=== PATIENT | male | born 1975 | race Caucasian/White ===

== ENCOUNTER 2019-05-29 08:46 | Inpatient (IN) | payer MEDICAID ==
[2019-05-29] VITALS (10 sets, daily range): BP systolic 83–101; BP diastolic 44–66
[~2019-05-29] VITALS: Ht 167.6 cm; Wt 44.6 kg
[~2019-05-29 08:46] MED LIST: CHLO5CAP3 PO; OXCA150T5 PO
[2019-05-29] MEDS ORDERED: normal saline 1000ml 1,000 ML IV ONE (09:10)
[2019-05-29 09:58] LABS: BASOPHILS # (AUTO) 0.1 X10'3 (0-0.2); BASOPHILS % (AUTO) 0.8 % (0-1); EOSINOPHILS % (AUTO) 0.2 % (0-6); HEMATOCRIT 43.3 % (42.0-52.0); HEMOGLOBIN 15.9 g/dl (14.0-17.9); LYMPHOCYTES # (AUTO) 1.1 X10'3 (1.1-4.8); LYMPHOCYTES % (AUTO) 11.4 % (21-51); MEAN CORPUSCULAR HEMOGLOBIN 38.3 PG (27.0-31.0); MEAN CORPUSCULAR HGB CONC 36.7 g/dL (33.0-36.5); MEAN CORPUSCULAR VOLUME 104.3 FL (78-98); MEAN PLATELET VOLUME 9.2 FL (7.4-10.4); MONOCYTES # (AUTO) 1.2 X10'3 (0-0.9); MONOCYTES % (AUTO) 12.6 % (2-12); NEUTROPHILS # (AUTO) 7.2 X10'3 (1.8-7.7); PLATELET COUNT 255 X10'3 (140-440); RED BLOOD COUNT 4.15 X10'6 (4.70-6.10); RED CELL DISTRIBUTION WIDTH 16.6 % (11.5-14.5); WHITE BLOOD COUNT 9.6 X10'3 (4.5-11.0)
[2019-05-29] MEDS ORDERED: aspirin 325mg tablet PO ONE (10:05)
[2019-05-29 10:10] LABS: ALANINE AMINOTRANSFERASE 47 U/L (12-78); ALBUMIN 3.2 G/DL (3.4-5.0); ALBUMIN/GLOBULIN RATIO 0.8 (1.1-1.5); ALKALINE PHOSPHATASE 185 IU/L (46-116); ANION GAP 6 (8-16); ASPARTATE AMINO TRANSFERASE 72 U/L (10-37); BILIRUBIN,TOTAL 1.1 MG/DL (0.1-1.0); BLOOD UREA NITROGEN 6 MG/DL (7-18); BUN/CREATININE RATIO 6.1 (5.4-32.0); CALCIUM 8.1 MG/DL (8.5-10.1); CHLORIDE 65 MMOL/L (99-107); CREATININE 0.99 MG/DL (0.60-1.10); ETHANOL < 0.010 GM/DL (0.0-0.010); GLUCOSE 210 MG/DL (70-104); MAGNESIUM 1.4 MG/DL (1.5-2.4); PHOSPHORUS 4.2 MG/DL (2.3-4.5); TOTAL PROTEIN 7.4 G/DL (6.4-8.2); eGFR 82 ML/MIN
[2019-05-29 10:14] LABS: POTASSIUM 1.5 MMOL/L (3.5-5.1); SODIUM 115 MMOL/L (135-145)
[2019-05-29 10:15] LABS: TOTAL CARBON DIOXIDE 44.2 MMOL/L (24-32)
[2019-05-29] MEDS ORDERED: potassium Cl 20 mEq SR tablet PO ONE (10:20)
[2019-05-29] MEDS ORDERED: potassium Cl 10 mEq/100mL bag IV ONE ×2 (10:20→12:45)
[2019-05-29] MEDS ORDERED: magnesium 2GM in 50ml NS 50 ML IV ONE (10:20)
[2019-05-29 10:59] LABS: TOTAL CELLS COUNTED 100
[2019-05-29 11:01] LABS: ANISOCYTOSIS 1+; PLATELET ESTIMATE NORMAL
[2019-05-29 11:03] LABS: GIANT PLATELET FEW
[2019-05-29 11:05] LABS: LARGE PLATELETS MODERATE; POLYCHROMASIA FEW
[2019-05-29 11:06] LABS: ROULEAUX 1+
[2019-05-29 11:32] LABS: CLARITY,URINE CLEAR (Clear); COLOR,URINE YELLOW (Yellow); GLUCOSE, URINE NEGATIVE (Neg); KETONES,URINE NEGATIVE (Neg); LEUKOCYTE ESTERASE ,URINE NEGATIVE (Neg); NITRITES, URINE NEGATIVE (Neg); OCCULT BLOOD,URINE TRACE-LYSED (Neg); PH,URINE 6.5 (4.8-8.0); PROTEIN,URINE 30 mg/dl (Neg); UROBILINOGEN,URINE 0.2 E.U/dL (0.2-1.0)
[2019-05-29 11:35] LABS: UA COLLECTION TYPE CLN CATCH MIDSTREAM
[2019-05-29 11:36] LABS: URINE AMPHETAMINE SCREEN NEGATIVE (Neg); URINE BARBITUATE SCREEN NEGATIVE (Neg); URINE BENZODIAZEPINES SCREEN NEGATIVE (Neg); URINE CANNABINOID SCREEN POSITIVE (Neg); URINE COCAINE SCREEN NEGATIVE (Neg); URINE METHADONE SCREEN NEGATIVE (Neg); URINE OPIATE SCREEN NEGATIVE (Neg); URINE PHENCYCLIDINE SCREEN NEGATIVE (Neg)
[2019-05-29 11:36] LABS: ABG BASE EXCESS 21.3 mmol/L (-2.0-3.0); ABG HCO3 45.5 mmol/L (22.0-26.0); ABG OXYGEN SATURATION 93.7 % (95-98); ABG PH (T) 7.604 (7.350-7.450); ABG PO2 (T) 63.8 mmHg (83-108); FCOHb 2.1 % (0.5-1.5); FMetHb 0.1 % (0.3-1.12); FO2Hb 91.6 % (94-100); TOTAL HEMOGLOBIN 13.2 G/dl (14.0-17.9)
[2019-05-29 11:43] LABS: RBC,URINE 0-2 /HPF (0-2)
[2019-05-29 11:44] LABS: BACTERIA,URINE NONE SEEN /HPF (Neg); SQUAMOUS EPITHELIAL CELL,UR FEW /LPF (FEW)
[2019-05-29] MEDS ORDERED: sodium phosphate inj. 30 MMOL in dextrose 5%-water 250 ML IV PRN (11:45)
[2019-05-29] MEDS ORDERED: bisacodyl 10mg suppository rectal RC PRN (11:45)
[2019-05-29] MEDS ORDERED: magnesium hydroxide 30ml (MOM) UD suspension PO PRN (11:45)
[2019-05-29] MEDS ORDERED: magnesium Cl slow-release 64mg tablet PO PRN (11:45)
[2019-05-29] MEDS ORDERED: acetaminophen 325mg tablet PO PRN ×2 (11:45)
[2019-05-29] MEDS ORDERED: magnesium 2GM in 50ml NS 50 ML IV PRN (11:45)
[2019-05-29] MEDS ORDERED: Neutra Phos packet PO PRN (11:45)
[2019-05-29] MEDS ORDERED: ondansetron/PF 4mg/2ml inj IV PRN (11:45)
[2019-05-29] MEDS: normal saline 1000ml 1,000 ML IV SCH ×2 (12:16→22:52)
[2019-05-29] MEDS ORDERED: MULT-955 PO (12:21)
[2019-05-29] MEDS: magnesium 4gm in 100ml NS 100 ML IV PRN (12:23)
[2019-05-29] MEDS: K, MAG and/or Phos replacement - Verify level? MC SCH (12:30)
--- NOTE | 2019-05-29 12:31 | NUR ---
called regarding repeat k+ 1.7 md ordered to repeat previous K+ orders. 10 meq IV and 40 meq PO.
[2019-05-29 12:52] LABS: ALBUMIN 2.6 G/DL (3.4-5.0); ANION GAP 1 (8-16); BLOOD UREA NITROGEN 5 MG/DL (7-18); BUN/CREATININE RATIO 9.4 (5.4-32.0); CALCIUM 6.8 MG/DL (8.5-10.1); CHLORIDE 72 MMOL/L (99-107); CREATININE 0.53 MG/DL (0.60-1.10); GLUCOSE 101 MG/DL (70-104); PHOSPHORUS 3.2 MG/DL (2.3-4.5); eGFR > 90 ML/MIN
[2019-05-29 12:55] LABS: SODIUM 117 MMOL/L (135-145)
[2019-05-29] MEDS: potassium Cl 20 mEq SR tablet PO PRN ×3 (12:55→22:08)
[2019-05-29 12:56] LABS: POTASSIUM 1.8 MMOL/L (3.5-5.1); TOTAL CARBON DIOXIDE 44.3 MMOL/L (24-32)
[2019-05-29] MEDS ORDERED: chlordiazePOXIDE 5mg capsule PO SCH (13:00)
[2019-05-29 14:07] LABS: TROPONIN I 0.27 NG/ML (0.0-0.05)
[2019-05-29 15:55] LABS: MAGNESIUM 4.2 MG/DL (1.5-2.4)
[2019-05-29 16:08] LABS: ALBUMIN 2.4 G/DL (3.4-5.0); ANION GAP 0 (8-16); BLOOD UREA NITROGEN 4 MG/DL (7-18); BUN/CREATININE RATIO 7.5 (5.4-32.0); CALCIUM 6.9 MG/DL (8.5-10.1); CHLORIDE 72 MMOL/L (99-107); CREATININE 0.53 MG/DL (0.60-1.10); GLUCOSE 116 MG/DL (70-104); PHOSPHORUS 2.9 MG/DL (2.3-4.5); eGFR > 90 ML/MIN
[2019-05-29 16:13] LABS: POTASSIUM 1.9 MMOL/L (3.5-5.1); SODIUM 117 MMOL/L (135-145)
[2019-05-29 16:14] LABS: TOTAL CARBON DIOXIDE 44.9 MMOL/L (24-32)
[2019-05-29 18:29] LABS: ALBUMIN 2.6 G/DL (3.4-5.0); ANION GAP 0 (8-16); BLOOD UREA NITROGEN 4 MG/DL (7-18); BUN/CREATININE RATIO 8.9 (5.4-32.0); CALCIUM 6.9 MG/DL (8.5-10.1); CHLORIDE 77 MMOL/L (99-107); CREATININE 0.45 MG/DL (0.60-1.10); GLUCOSE 105 MG/DL (70-104); PHOSPHORUS 2.6 MG/DL (2.3-4.5); eGFR > 90 ML/MIN
--- NOTE | 2019-05-29 18:34 | NUR ---
Patient in room CICU 2011. I have received report from Chastity BANSAL and had the opportunity to ask questions and assume patient care. Patient is resting, doesn't have much of an appetite, will continue to monitor.
[2019-05-29 18:37] LABS: SODIUM 119 MMOL/L (135-145)
[2019-05-29 18:47] LABS: MAGNESIUM 3.4 MG/DL (1.5-2.4)
--- NOTE | 2019-05-29 18:51 | NUR ---
Received critical lab results K+ 2.0 (up from 1.9) Na 119 (up from 117) pCo2 42 (down from 44.9)
[2019-05-29] MEDS ORDERED: oxcarbazepine 150mg tablet PO SCH (20:00)
[2019-05-29] MEDS: heparin, porcine 5000 units/ml vial SQ SCH (20:02)
[2019-05-29 20:13] LABS: OSMOLALITY UA 175 MOSM/K (50-1400)
[2019-05-29 20:18] LABS: CHLORIDE,URINE RANDOM < 50 MEQ/L
[2019-05-29 21:48] LABS: ALBUMIN 2.5 G/DL (3.4-5.0); ANION GAP -1 (8-16); BLOOD UREA NITROGEN 4 MG/DL (7-18); BUN/CREATININE RATIO 7.7 (5.4-32.0); CALCIUM 6.8 MG/DL (8.5-10.1); CHLORIDE 81 MMOL/L (99-107); CREATININE 0.52 MG/DL (0.60-1.10); GLUCOSE 89 MG/DL (70-104); PHOSPHORUS 1.8 MG/DL (2.3-4.5); SODIUM 123 MMOL/L (135-145); eGFR > 90 ML/MIN
[2019-05-29 21:52] LABS: POTASSIUM 2.2 MMOL/L (3.5-5.1); TOTAL CARBON DIOXIDE 42.6 MMOL/L (24-32)
--- NOTE | 2019-05-29 22:17 | NUR ---
Lab called with critical results K+ 2.2 (up from 2.0) Co2 42.6 Na+ 123 (no longer critical)
[2019-05-30] VITALS (22 sets, daily range): BP systolic 81–119; BP diastolic 37–81
[2019-05-30 00:32] LABS: ALBUMIN 2.4 G/DL (3.4-5.0); ANION GAP 0 (8-16); BLOOD UREA NITROGEN 4 MG/DL (7-18); BUN/CREATININE RATIO 9.5 (5.4-32.0); CALCIUM 7.1 MG/DL (8.5-10.1); CHLORIDE 83 MMOL/L (99-107); CREATININE 0.42 MG/DL (0.60-1.10); GLUCOSE 107 MG/DL (70-104); PHOSPHORUS 1.6 MG/DL (2.3-4.5); SODIUM 123 MMOL/L (135-145); TOTAL CARBON DIOXIDE 39.9 MMOL/L (24-32); eGFR > 90 ML/MIN
[2019-05-30 00:38] LABS: POTASSIUM 2.2 MMOL/L (3.5-5.1)
[2019-05-30] MEDS: potassium Cl 20 mEq SR tablet PO PRN ×3 (02:01→22:27)
[2019-05-30 05:30] LABS: BASOPHILS % (AUTO) 0.4 % (0-1); EOSINOPHILS % (AUTO) 0.2 % (0-6); LYMPHOCYTES # (AUTO) 1.3 X10'3 (1.1-4.8); LYMPHOCYTES % (AUTO) 17.8 % (21-51); MEAN PLATELET VOLUME 9.3 FL (7.4-10.4); MONOCYTES # (AUTO) 0.8 X10'3 (0-0.9); MONOCYTES % (AUTO) 11.4 % (2-12); NEUTROPHILS % (AUTO) 70.2 % (42-75); PLATELET COUNT 214 X10'3 (140-440); RED BLOOD COUNT 2.93 X10'6 (4.70-6.10); WHITE BLOOD COUNT 7.1 X10'3 (4.5-11.0)
[2019-05-30 06:05] LABS: ALANINE AMINOTRANSFERASE 35 U/L (12-78); ALBUMIN 2.4 G/DL (3.4-5.0); ALBUMIN/GLOBULIN RATIO 0.8 (1.1-1.5); ALKALINE PHOSPHATASE 131 IU/L (46-116); ANION GAP 2 (8-16); ASPARTATE AMINO TRANSFERASE 58 U/L (10-37); BILIRUBIN,TOTAL 0.6 MG/DL (0.1-1.0); BLOOD UREA NITROGEN 4 MG/DL (7-18); BUN/CREATININE RATIO 9.5 (5.4-32.0); CALCIUM 6.8 MG/DL (8.5-10.1); CHLORIDE 86 MMOL/L (99-107); CREATININE 0.42 MG/DL (0.60-1.10); GLUCOSE 92 MG/DL (70-104); MAGNESIUM 2.5 MG/DL (1.5-2.4); PHOSPHORUS 1.4 MG/DL (2.3-4.5); SODIUM 127 MMOL/L (135-145); TOTAL CARBON DIOXIDE 38.8 MMOL/L (24-32); TOTAL PROTEIN 5.3 G/DL (6.4-8.2); eGFR > 90 ML/MIN
[2019-05-30 06:29] LABS: POTASSIUM 2.5 MMOL/L (3.5-5.1)
--- NOTE | 2019-05-30 06:45 | NUR ---
Problems reprioritized. Patient report given, questions answered & plan of care reviewed with Leandra BANSAL.
[2019-05-30 07:11] LABS: HEMOGLOBIN 11.3 g/dl (14.0-17.9); MEAN CORPUSCULAR HEMOGLOBIN 37.5 PG (27.0-31.0); MEAN CORPUSCULAR HGB CONC 35.4 g/dL (33.0-36.5); MEAN CORPUSCULAR VOLUME 105.9 FL (78-98); RED CELL DISTRIBUTION WIDTH 16.4 % (11.5-14.5)
[2019-05-30 07:16] LABS: ANISOCYTOSIS 1+; PLATELET ESTIMATE NORMAL
[2019-05-30] MEDS: normal saline 1000ml 1,000 ML IV SCH ×2 (09:19→17:50)
[2019-05-30] MEDS: heparin, porcine 5000 units/ml vial SQ SCH ×2 (09:19→21:09)
[2019-05-30 09:57] LABS: ALBUMIN 2.5 G/DL (3.4-5.0); ANION GAP 3 (8-16); BLOOD UREA NITROGEN 3 MG/DL (7-18); BUN/CREATININE RATIO 5.5 (5.4-32.0); CALCIUM 6.9 MG/DL (8.5-10.1); CHLORIDE 86 MMOL/L (99-107); CREATININE 0.55 MG/DL (0.60-1.10); GLUCOSE 148 MG/DL (70-104); SODIUM 126 MMOL/L (135-145); TOTAL CARBON DIOXIDE 37.3 MMOL/L (24-32); eGFR > 90 ML/MIN
[2019-05-30 10:04] LABS: PHOSPHORUS 0.8 MG/DL (2.3-4.5); POTASSIUM 2.3 MMOL/L (3.5-5.1)
[2019-05-30] MEDS: K, MAG and/or Phos replacement - Verify level? MC SCH (10:09)
--- NOTE | 2019-05-30 10:22 | NUR ---
Dr. Rodriguez currently doing critical care rounds. Will notify MD on rounds about K2.3 and Phos 0.8. Addendum: 05/30/19 at 1048 by Leandra Krueger RN Dr. Rodriguez aware of levels. Order received to give IV Potassium replacement and Potassium Phos replacement per Dr. Rodriguez. MD state he placed an order yesterday for PICC placement, none placed. stated PICC placed first before further electrolyte replacement. PICC RN paged. Also, obtained order to d/c accu checks q6 as pt is not a diabetic. BG consistently normal in the 100's.
[2019-05-30] MEDS ORDERED: potassium phosphate inj 30 MMOL in normal saline 500ml IV soln 490 ML IV ONE (10:35)
--- NOTE | 2019-05-30 12:39 | NUR ---
pt requesting a nicotine patch. Dr. Rodriguez aware and stated ok to give. Order for nicotine patch placed.
[2019-05-30] MEDS: nicotine 14mg patch - 24hr TD SCH (13:10)
[2019-05-30 13:37] LABS: ALBUMIN 2.3 G/DL (3.4-5.0); ANION GAP 1 (8-16); BLOOD UREA NITROGEN 3 MG/DL (7-18); CALCIUM 7.6 MG/DL (8.5-10.1); CHLORIDE 90 MMOL/L (99-107); CREATININE 0.43 MG/DL (0.60-1.10); GLUCOSE 94 MG/DL (70-104); SODIUM 129 MMOL/L (135-145); TOTAL CARBON DIOXIDE 37.7 MMOL/L (24-32); eGFR > 90 ML/MIN
[2019-05-30 13:49] LABS: PHOSPHORUS 0.8 MG/DL (2.3-4.5); POTASSIUM 2.7 MMOL/L (3.5-5.1)
--- NOTE | 2019-05-30 13:53 | NUR ---
Malnutrition consult, admitted with electrolyte abnormalities; reports weight loss of 16 lbs in the past month per MD note. History of EtOH but reports currently clean. Current weight is 40.6 kg on bedscale. Very low BMI of 14. Per weight documentation history patient is chronically underweight, weighted 45 kg in 2017 with BMI of 16. Current MCV is 105.9 which may indicate or folic acid or vitamin B12 deficiency. Sodium, potassium, and phosphorus are low, MD is aware and patient is receiving replacement. Appetite is poor, eating 0-25%. Visibly with fat and muscle wasting. May benefit from oral nutrition supplement however on fluid restricted diet. Will discuss recommendation with MD. Recommend: 1. continue regular diet 2. continue fluid restriction per MD 3. recommend ONS in view of malnutrition and suboptimal PO Intake, will discuss with MD 4. May benefit from MVI 5. Weight per rx Addendum: 05/30/19 at [address] Amended: Links added.
[2019-05-30 15:53] LABS: ALBUMIN 2.3 G/DL (3.4-5.0); ANION GAP 2 (8-16); BLOOD UREA NITROGEN 3 MG/DL (7-18); BUN/CREATININE RATIO 6.3 (5.4-32.0); CALCIUM 7.2 MG/DL (8.5-10.1); CHLORIDE 89 MMOL/L (99-107); CREATININE 0.48 MG/DL (0.60-1.10); GLUCOSE 125 MG/DL (70-104); SODIUM 127 MMOL/L (135-145); eGFR > 90 ML/MIN
[2019-05-30] MEDS: potassium Cl 20mEq/100mL bag 100 ML IV PRN ×2 (15:56→17:32)
[2019-05-30 16:01] LABS: PHOSPHORUS 0.7 MG/DL (2.3-4.5); POTASSIUM 2.2 MMOL/L (3.5-5.1)
[2019-05-30] MEDS: lactose-reduced food (Ensure Enlive) - 237ml bottle PO SCH (18:00)
--- NOTE | 2019-05-30 18:14 | NUR ---
Problems reprioritized. Patient report given, questions answered & plan of care reviewed with NIMISHA Spivey.
--- NOTE | 2019-05-30 18:30 | NUR ---
assumed care from Leandra BANSAL no questions or concerns after SBAR
--- NOTE | 2019-05-30 19:33 | NUR ---
patient in bed, covers on eyes open watching television, rr even un labored no observable s/s of acute stress at this time
[2019-05-30 21:03] LABS: ALBUMIN 2.3 G/DL (3.4-5.0); ANION GAP 5 (8-16); BLOOD UREA NITROGEN 2 MG/DL (7-18); BUN/CREATININE RATIO 4.8 (5.4-32.0); CALCIUM 7.5 MG/DL (8.5-10.1); CHLORIDE 92 MMOL/L (99-107); CREATININE 0.42 MG/DL (0.60-1.10); GLUCOSE 124 MG/DL (70-104); PHOSPHORUS 2.4 MG/DL (2.3-4.5); POTASSIUM 3.1 MMOL/L (3.5-5.1); SODIUM 128 MMOL/L (135-145); TOTAL CARBON DIOXIDE 31.4 MMOL/L (24-32); eGFR > 90 ML/MIN
[2019-05-31] VITALS (20 sets, daily range): BP systolic 95–122; BP diastolic 53–86
[2019-05-31 01:27] LABS: ALBUMIN 2.3 G/DL (3.4-5.0); ANION GAP 4 (8-16); BLOOD UREA NITROGEN 2 MG/DL (7-18); BUN/CREATININE RATIO 6.5 (5.4-32.0); CALCIUM 7.8 MG/DL (8.5-10.1); CHLORIDE 93 MMOL/L (99-107); CREATININE 0.31 MG/DL (0.60-1.10); GLUCOSE 91 MG/DL (70-104); PHOSPHORUS 2.7 MG/DL (2.3-4.5); SODIUM 129 MMOL/L (135-145); TOTAL CARBON DIOXIDE 31.9 MMOL/L (24-32); eGFR > 90 ML/MIN
[2019-05-31 01:35] LABS: POTASSIUM 2.8 MMOL/L (3.5-5.1)
--- NOTE | 2019-05-31 02:08 | NUR ---
PATIENT LYING ON RIGHT SIDE IN BED COVERS ON EYES CLOSED RR EVEN UN LABORED NO S/S OF ACUTE STRESS AT THIS TIME
[2019-05-31] MEDS: potassium Cl 20 mEq SR tablet PO PRN ×2 (03:18→06:55)
[2019-05-31 04:02] LABS: BASOPHILS # (AUTO) 0.1 X10'3 (0-0.2); BASOPHILS % (AUTO) 0.9 % (0-1); EOSINOPHILS % (AUTO) 0.4 % (0-6); HEMATOCRIT 30.5 % (42.0-52.0); LYMPHOCYTES # (AUTO) 1.7 X10'3 (1.1-4.8); LYMPHOCYTES % (AUTO) 25.2 % (21-51); MEAN CORPUSCULAR HEMOGLOBIN 38.6 PG (27.0-31.0); MEAN CORPUSCULAR HGB CONC 36.2 g/dL (33.0-36.5); MEAN CORPUSCULAR VOLUME 106.6 FL (78-98); MEAN PLATELET VOLUME 8.9 FL (7.4-10.4); MONOCYTES # (AUTO) 0.8 X10'3 (0-0.9); NEUTROPHILS # (AUTO) 4.1 X10'3 (1.8-7.7); NEUTROPHILS % (AUTO) 61.5 % (42-75); PLATELET COUNT 206 X10'3 (140-440); RED BLOOD COUNT 2.86 X10'6 (4.70-6.10); RED CELL DISTRIBUTION WIDTH 15.7 % (11.5-14.5); WHITE BLOOD COUNT 6.7 X10'3 (4.5-11.0)
[2019-05-31 04:13] LABS: ALANINE AMINOTRANSFERASE 38 U/L (12-78); ALBUMIN 2.3 G/DL (3.4-5.0); ALBUMIN/GLOBULIN RATIO 0.8 (1.1-1.5); ALKALINE PHOSPHATASE 122 IU/L (46-116); ANION GAP 6 (8-16); ASPARTATE AMINO TRANSFERASE 51 U/L (10-37); BILIRUBIN,TOTAL 0.6 MG/DL (0.1-1.0); BLOOD UREA NITROGEN 3 MG/DL (7-18); BUN/CREATININE RATIO 11.1 (5.4-32.0); CALCIUM 6.9 MG/DL (8.5-10.1); CHLORIDE 92 MMOL/L (99-107); CREATININE 0.27 MG/DL (0.60-1.10); GLUCOSE 91 MG/DL (70-104); MAGNESIUM 1.4 MG/DL (1.5-2.4); PHOSPHORUS 2.3 MG/DL (2.3-4.5); SODIUM 130 MMOL/L (135-145); TOTAL CARBON DIOXIDE 31.7 MMOL/L (24-32); TOTAL PROTEIN 5.1 G/DL (6.4-8.2); eGFR > 90 ML/MIN
[2019-05-31 04:17] LABS: POTASSIUM 2.6 MMOL/L (3.5-5.1)
[2019-05-31] MEDS: potassium Cl 20mEq/100mL bag 100 ML IV PRN ×2 (04:23→05:21)
[2019-05-31] MEDS: normal saline 1000ml 1,000 ML IV SCH ×3 (04:23→23:50)
[2019-05-31] MEDS: magnesium 4gm in 100ml NS 100 ML IV PRN (05:22)
--- NOTE | 2019-05-31 06:15 | NUR ---
SBAR TO ALETHEA BANSAL NO QUESTIONS OR CONCERNS AFTER ASSUMING CARE
--- NOTE | 2019-05-31 06:30 | NUR ---
Patient in room CICU 2011. I have received report from NIMISHA Spivey and had the opportunity to ask questions and assume patient care.
[2019-05-31] MEDS: potassium CL 10mEq/100ml bag 100 ML IV PRN ×7 (06:54→17:33)
[2019-05-31 07:15] LABS: ALBUMIN 2.4 G/DL (3.4-5.0); ANION GAP 5 (8-16); BLOOD UREA NITROGEN 2 MG/DL (7-18); BUN/CREATININE RATIO 6.3 (5.4-32.0); CALCIUM 7.9 MG/DL (8.5-10.1); CHLORIDE 93 MMOL/L (99-107); CREATININE 0.32 MG/DL (0.60-1.10); GLUCOSE 90 MG/DL (70-104); PHOSPHORUS 1.7 MG/DL (2.3-4.5); POTASSIUM 3.3 MMOL/L (3.5-5.1); SODIUM 128 MMOL/L (135-145); TOTAL CARBON DIOXIDE 30.2 MMOL/L (24-32); eGFR > 90 ML/MIN
[2019-05-31] MEDS: heparin, porcine 5000 units/ml vial SQ SCH ×2 (07:18→21:01)
[2019-05-31] MEDS: nicotine 14mg patch - 24hr TD SCH (07:19)
[2019-05-31] MEDS: K, MAG and/or Phos replacement - Verify level? MC SCH (08:00)
[2019-05-31] MEDS: lactose-reduced food (Ensure Enlive) - 237ml bottle PO SCH ×3 (08:00→18:00)
[2019-05-31] MEDS: sodium phosphate inj. 15 MMOL in dextrose 5%-water 150 ML IV PRN (08:44)
[2019-05-31 10:34] LABS: ALBUMIN 2.4 G/DL (3.4-5.0); ANION GAP 7 (8-16); BLOOD UREA NITROGEN 1 MG/DL (7-18); CALCIUM 6.9 MG/DL (8.5-10.1); CHLORIDE 92 MMOL/L (99-107); CREATININE 0.33 MG/DL (0.60-1.10); GLUCOSE 156 MG/DL (70-104); MAGNESIUM 2.5 MG/DL (1.5-2.4); PHOSPHORUS 1.3 MG/DL (2.3-4.5); POTASSIUM 3.5 MMOL/L (3.5-5.1); SODIUM 127 MMOL/L (135-145); eGFR > 90 ML/MIN
[2019-05-31] MEDS ORDERED: haloperidol 5mg tablet PO PRN (12:55)
[2019-05-31] MEDS ORDERED: LORazepam 1 MG tablet PO PRN (12:55)
[2019-05-31] MEDS ORDERED: thiamine inj. 100 MG, folic acid inj. 2 MG in normal saline 100ml IV soln 100 ML IV SCH (13:02)
[2019-05-31 14:32] LABS: ALBUMIN 2.5 G/DL (3.4-5.0); ANION GAP 8 (8-16); BLOOD UREA NITROGEN 2 MG/DL (7-18); BUN/CREATININE RATIO 4.5 (5.4-32.0); CALCIUM 7.1 MG/DL (8.5-10.1); CHLORIDE 92 MMOL/L (99-107); CREATININE 0.44 MG/DL (0.60-1.10); GLUCOSE 133 MG/DL (70-104); PHOSPHORUS 2.3 MG/DL (2.3-4.5); POTASSIUM 3.4 MMOL/L (3.5-5.1); SODIUM 127 MMOL/L (135-145); TOTAL CARBON DIOXIDE 27.2 MMOL/L (24-32); eGFR > 90 ML/MIN
[2019-05-31] MEDS ORDERED: MVI, adult No.4 with vit. K 10 ML in dextrose 5% water 500ml 500 ML IV SCH ×2 (15:00)
[2019-05-31] MEDS: folic acid 1mg tablet PO SCH (15:29)
[2019-05-31] MEDS: thiamine 100mg tablet PO SCH (15:29)
--- NOTE | 2019-05-31 15:48 | NUR ---
Follow-up: visited patient at bedside, patient reports no chewing or swallowing difficulty, no GI distress, reports UBW of 115 lbs, current weight 96 lbs. States the weight was lost unintentionally but has not changed his diet or lifestyle recently. Endorses past history of heavy EtOH and went through rehab two years ago, was drinking a gallon of EtOH and beer at that time. Reports he currently drink half pint two times per week, d/w RN. 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 He is very interested in drinking the ensure, provided written malnutrition education handout with verbal review. Recommend multivitamin, d/w MD at rounds. Will continue to follow. Recommend: 1. continue regular diet 2. continue fluid restriction per MD 3. Ensure Enlive with meals 4. MVI 5. Weight per rx Addendum: 05/31/19 at [address] Amended: Links added.
[2019-05-31 17:53] LABS: ALBUMIN 2.4 G/DL (3.4-5.0); ANION GAP 7 (8-16); BLOOD UREA NITROGEN 2 MG/DL (7-18); BUN/CREATININE RATIO 6.1 (5.4-32.0); CALCIUM 7.2 MG/DL (8.5-10.1); CHLORIDE 94 MMOL/L (99-107); CREATININE 0.33 MG/DL (0.60-1.10); GLUCOSE 85 MG/DL (70-104); PHOSPHORUS 2.2 MG/DL (2.3-4.5); POTASSIUM 3.9 MMOL/L (3.5-5.1); SODIUM 128 MMOL/L (135-145); TOTAL CARBON DIOXIDE 27.1 MMOL/L (24-32); eGFR > 90 ML/MIN
--- NOTE | 2019-05-31 17:59 | NUR ---
Report called to NIMISHA Arcos. Pt placed on tele and transferred to telemetry floor via wheelchair with all belongings. Pt alert, oriented and stable for transfer. No complaints at this time.
--- NOTE | 2019-05-31 18:33 | NUR ---
Problems reprioritized. Patient report given, questions answered & plan of care reviewed with NIMISHA Rascon.
[2019-05-31 22:33] LABS: ALBUMIN 2.4 G/DL (3.4-5.0); ANION GAP 4 (8-16); BLOOD UREA NITROGEN 2 MG/DL (7-18); BUN/CREATININE RATIO 4.8 (5.4-32.0); CALCIUM 8.2 MG/DL (8.5-10.1); CHLORIDE 97 MMOL/L (99-107); CREATININE 0.42 MG/DL (0.60-1.10); GLUCOSE 105 MG/DL (70-104); PHOSPHORUS 1.8 MG/DL (2.3-4.5); SODIUM 130 MMOL/L (135-145); TOTAL CARBON DIOXIDE 29.1 MMOL/L (24-32); eGFR > 90 ML/MIN
[2019-06-01 02:24] LABS: BASOPHILS # (AUTO) 0.1 X10'3 (0-0.2); BASOPHILS % (AUTO) 1.3 % (0-1); EOSINOPHILS # (AUTO) 0.1 X10'3 (0-0.9); EOSINOPHILS % (AUTO) 1.1 % (0-6); HEMATOCRIT 31.3 % (42.0-52.0); HEMOGLOBIN 10.9 g/dl (14.0-17.9); LYMPHOCYTES % (AUTO) 21.1 % (21-51); MEAN CORPUSCULAR HEMOGLOBIN 37.9 PG (27.0-31.0); MEAN CORPUSCULAR HGB CONC 34.7 g/dL (33.0-36.5); MEAN CORPUSCULAR VOLUME 109.2 FL (78-98); MEAN PLATELET VOLUME 8.8 FL (7.4-10.4); MONOCYTES % (AUTO) 10.3 % (2-12); NEUTROPHILS # (AUTO) 6.4 X10'3 (1.8-7.7); NEUTROPHILS % (AUTO) 66.2 % (42-75); PLATELET COUNT 214 X10'3 (140-440); RED BLOOD COUNT 2.87 X10'6 (4.70-6.10); RED CELL DISTRIBUTION WIDTH 15.9 % (11.5-14.5); WHITE BLOOD COUNT 9.7 X10'3 (4.5-11.0)
[2019-06-01 02:38] LABS: ALANINE AMINOTRANSFERASE 41 U/L (12-78); ALBUMIN 2.4 G/DL (3.4-5.0); ALBUMIN/GLOBULIN RATIO 0.8 (1.1-1.5); ALKALINE PHOSPHATASE 122 IU/L (46-116); AMYLASE 88 U/L (25-115); ANION GAP 5 (8-16); ASPARTATE AMINO TRANSFERASE 50 U/L (10-37); BILIRUBIN,TOTAL 0.4 MG/DL (0.1-1.0); BLOOD UREA NITROGEN 2 MG/DL (7-18); BUN/CREATININE RATIO 5.7 (5.4-32.0); CALCIUM 7.9 MG/DL (8.5-10.1); CHLORIDE 97 MMOL/L (99-107); CREATININE 0.35 MG/DL (0.60-1.10); GLUCOSE 87 MG/DL (70-104); LIPASE 323 U/L (73-393); MAGNESIUM 1.7 MG/DL (1.5-2.4); PHOSPHORUS 2.1 MG/DL (2.3-4.5); POTASSIUM 3.6 MMOL/L (3.5-5.1); SODIUM 130 MMOL/L (135-145); TOTAL CARBON DIOXIDE 27.8 MMOL/L (24-32); TOTAL PROTEIN 5.4 G/DL (6.4-8.2); eGFR > 90 ML/MIN
[2019-06-01 03:00] VITALS: BP 90/63
--- NOTE | 2019-06-01 06:52 | NUR ---
Patient in room PCU 3028. I have received report from AMALIA BANSAL and had the opportunity to ask questions and assume patient care.
[2019-06-01 07:14] VITALS: BP 103/73
[2019-06-01 07:32] LABS: ALBUMIN 2.3 G/DL (3.4-5.0); ANION GAP 5 (8-16); BLOOD UREA NITROGEN 2 MG/DL (7-18); BUN/CREATININE RATIO 5.7 (5.4-32.0); CHLORIDE 98 MMOL/L (99-107); CREATININE 0.35 MG/DL (0.60-1.10); GLUCOSE 79 MG/DL (70-104); PHOSPHORUS 2.1 MG/DL (2.3-4.5); POTASSIUM 3.4 MMOL/L (3.5-5.1); SODIUM 132 MMOL/L (135-145); TOTAL CARBON DIOXIDE 28.7 MMOL/L (24-32); eGFR > 90 ML/MIN
[2019-06-01] MEDS: sodium phosphate inj. 15 MMOL in dextrose 5%-water 150 ML IV PRN (07:39)
[2019-06-01] MEDS ORDERED: non-formulary drug (Multivitamin (Daily Value) 1 TAB) PO SCH (08:00)
[2019-06-01] MEDS ORDERED: multivitamins, therapeutics tablet PO SCH (08:00)
[2019-06-01] MEDS: potassium Cl 20 mEq SR tablet PO PRN ×2 (08:42→12:53)
[2019-06-01] MEDS: multivitamins, therapeutics tablet PO SCH (08:42)
[2019-06-01] MEDS: folic acid 1mg tablet PO SCH (08:43)
[2019-06-01] MEDS: heparin, porcine 5000 units/ml vial SQ SCH ×2 (08:44→21:09)
[2019-06-01] MEDS: thiamine 100mg tablet PO SCH (08:44)
[2019-06-01] MEDS: nicotine 14mg patch - 24hr TD SCH (08:45)
[2019-06-01] MEDS: lactose-reduced food (Ensure Enlive) - 237ml bottle PO SCH ×3 (08:53→18:00)
[2019-06-01] MEDS: K, MAG and/or Phos replacement - Verify level? MC SCH (08:54)
--- NOTE | 2019-06-01 09:11 | NUR ---
Student Medication Administration: For this medication-pass time frame, all medication were reviewed, dispensed, administered and documented per hospital policy by Maryse FRIEND [facility].
[2019-06-01] MEDS: normal saline 1000ml 1,000 ML IV SCH ×2 (09:50→14:53)
[2019-06-01 10:59] LABS: ALBUMIN 2.2 G/DL (3.4-5.0); ANION GAP 7 (8-16); BLOOD UREA NITROGEN 3 MG/DL (7-18); BUN/CREATININE RATIO 6.7 (5.4-32.0); CALCIUM 8.2 MG/DL (8.5-10.1); CHLORIDE 98 MMOL/L (99-107); CREATININE 0.45 MG/DL (0.60-1.10); GLUCOSE 200 MG/DL (70-104); PHOSPHORUS 5.7 MG/DL (2.3-4.5); POTASSIUM 3.4 MMOL/L (3.5-5.1); SODIUM 133 MMOL/L (135-145); TOTAL CARBON DIOXIDE 28.1 MMOL/L (24-32); eGFR > 90 ML/MIN
[2019-06-01 11:00] VITALS: BP 115/85
[2019-06-01 14:34] LABS: ALBUMIN 2.6 G/DL (3.4-5.0); ANION GAP 7 (8-16); BLOOD UREA NITROGEN 4 MG/DL (7-18); BUN/CREATININE RATIO 7.5 (5.4-32.0); CALCIUM 8.5 MG/DL (8.5-10.1); CHLORIDE 98 MMOL/L (99-107); CREATININE 0.53 MG/DL (0.60-1.10); GLUCOSE 125 MG/DL (70-104); PHOSPHORUS 3.5 MG/DL (2.3-4.5); POTASSIUM 3.8 MMOL/L (3.5-5.1); SODIUM 133 MMOL/L (135-145); eGFR > 90 ML/MIN
[2019-06-01 17:50] LABS: ALBUMIN 2.6 G/DL (3.4-5.0); BLOOD UREA NITROGEN 6 MG/DL (7-18); CALCIUM 8.7 MG/DL (8.5-10.1); GLUCOSE 81 MG/DL (70-104); PHOSPHORUS 3.2 MG/DL (2.3-4.5); POTASSIUM 3.9 MMOL/L (3.5-5.1); SODIUM 133 MMOL/L (135-145); TOTAL CARBON DIOXIDE 27.7 MMOL/L (24-32)
[2019-06-01 17:54] LABS: ANION GAP 8 (8-16); CHLORIDE 97 MMOL/L (99-107)
[2019-06-01 18:00] VITALS: BP 140/77
[2019-06-01 18:00] LABS: BUN/CREATININE RATIO 14.3 (5.4-32.0); CREATININE 0.42 MG/DL (0.60-1.10); eGFR > 90 ML/MIN
--- NOTE | 2019-06-01 18:51 | NUR ---
Patient in room PCU 3028. I have received report from Kee BANSAL, and had the opportunity to ask questions and assume patient care.
[2019-06-01 23:00] VITALS: BP_SYST 117; BP_SYST 140; BP_DIAS 77; BP_DIAS 81
[2019-06-02 03:00] VITALS: BP 103/73
[2019-06-02] MEDS: normal saline 1000ml 1,000 ML IV SCH ×2 (05:50→11:39)
[2019-06-02 07:00] VITALS: BP 103/64
--- NOTE | 2019-06-02 07:05 | NUR ---
Patient in room PCU 3028. I have received report from NIMISHA Rascon and had the opportunity to ask questions and assume patient care.
[2019-06-02] MEDS: K, MAG and/or Phos replacement - Verify level? MC SCH (07:16)
[2019-06-02] MEDS: lactose-reduced food (Ensure Enlive) - 237ml bottle PO SCH ×3 (08:00→18:17)
[2019-06-02] MEDS: multivitamins, therapeutics tablet PO SCH (08:55)
[2019-06-02] MEDS: thiamine 100mg tablet PO SCH (08:55)
[2019-06-02] MEDS: folic acid 1mg tablet PO SCH (08:55)
[2019-06-02] MEDS: nicotine 14mg patch - 24hr TD SCH (08:57)
[2019-06-02] MEDS: heparin, porcine 5000 units/ml vial SQ SCH ×2 (09:01→20:00)
[2019-06-02] MEDS ORDERED: dextrose ORAL solution 15 GM/59 ML bottle PO PRN ×2 (09:40)
[2019-06-02] MEDS ORDERED: insulin Lispro (HumaLOG) vial - multi-dose SQ SCH (09:40)
[2019-06-02] MEDS ORDERED: MESSAGE TO PHARMACY PO ONE (09:40)
[2019-06-02] MEDS ORDERED: dextrose 50%-water 50ml dispensing syringe IV PRN ×2 (09:40)
[2019-06-02] MEDS ORDERED: glucagon, human recombinant 1mg kit SUBCUT PRN (09:40)
[2019-06-02 11:00] VITALS: BP 117/76
--- NOTE | 2019-06-02 11:02 | NUR ---
Reassessment: Electrolytes nearing normal per MD notes. Pt continues with electrolyte replacement PRN with routine IV NS. Pt documented with 75-100% PO intake since 05/31, previously averaging 25% prior to that. Pt with 100% PO intake of ONS meeting nutrient needs. Pt on EtOH w/d protocol receiving routine Thiamine, Folic acid, and MVI. LBM 06/02. Will continue to follow. Recommend: 1. continue regular diet 2. continue fluid restriction per MD 3. Ensure Enlive with meals 4. MVI, Thiamine, Folic acid 5. Weight per rx Addendum: 06/02/19 at [address] Amended: Links added.
[2019-06-02 15:00] VITALS: BP 123/77
--- NOTE | 2019-06-02 18:26 | NUR ---
Problems reprioritized. Patient report given, questions answered & plan of care reviewed with NIMSIHA Rascon.
--- NOTE | 2019-06-02 18:40 | NUR ---
Patient in room PCU 3028. I have received report from Isrrael BANSAL, and had the opportunity to ask questions and assume patient care.
[2019-06-02 19:00] VITALS: BP 115/81
[2019-06-02] MEDS ORDERED: insulin glargine (Lantus) pen - multi-dose SQ SCH (21:00)
[2019-06-03] MEDS: normal saline 1000ml 1,000 ML IV SCH ×3 (00:01→21:50)
[2019-06-03 03:00] VITALS: BP 140/77
[2019-06-03 06:00] VITALS: BP 112/66
--- NOTE | 2019-06-03 06:22 | NUR ---
Problems reprioritized. Patient report given, questions answered & plan of care reviewed with Isrrael BANSAL.
[2019-06-03] MEDS: lactose-reduced food (Ensure Enlive) - 237ml bottle PO SCH ×3 (07:02→18:05)
[2019-06-03] MEDS: multivitamins, therapeutics tablet PO SCH (07:28)
[2019-06-03] MEDS: folic acid 1mg tablet PO SCH (07:28)
[2019-06-03] MEDS: thiamine 100mg tablet PO SCH (07:28)
[2019-06-03] MEDS: heparin, porcine 5000 units/ml vial SQ SCH ×2 (07:28→19:44)
[2019-06-03] MEDS: nicotine 14mg patch - 24hr TD SCH (07:29)
[2019-06-03 08:25] LABS: ALANINE AMINOTRANSFERASE 33 U/L (12-78); ALBUMIN 2.2 G/DL (3.4-5.0); ALBUMIN/GLOBULIN RATIO 0.8 (1.1-1.5); ALKALINE PHOSPHATASE 86 IU/L (46-116); AMYLASE 95 U/L (25-115); ANION GAP 7 (8-16); ASPARTATE AMINO TRANSFERASE 29 U/L (10-37); BLOOD UREA NITROGEN 7 MG/DL (7-18); CALCIUM 7.1 MG/DL (8.5-10.1); CHLORIDE 103 MMOL/L (99-107); GLUCOSE 76 MG/DL (70-104); HEMOGLOBIN 9.6 g/dl (14.0-17.9); LIPASE 219 U/L (73-393); LYMPHOCYTES # (AUTO) 1.5 X10'3 (1.1-4.8); MAGNESIUM 1.2 MG/DL (1.5-2.4); MEAN PLATELET VOLUME 8.9 FL (7.4-10.4); MONOCYTES # (AUTO) 1.1 X10'3 (0-0.9); NEUTROPHILS # (AUTO) 3.8 X10'3 (1.8-7.7); PHOSPHORUS 4.3 MG/DL (2.3-4.5); POTASSIUM 3.1 MMOL/L (3.5-5.1); SODIUM 137 MMOL/L (135-145); TOTAL CARBON DIOXIDE 27.5 MMOL/L (24-32); WHITE BLOOD COUNT 6.6 X10'3 (4.5-11.0)
[2019-06-03 08:26] LABS: BASOPHILS # (AUTO) 0.1 X10'3 (0-0.2); BASOPHILS % (AUTO) 2.2 % (0-1); EOSINOPHILS % (AUTO) 0.6 % (0-6); HEMATOCRIT 27.4 % (42.0-52.0); LYMPHOCYTES % (AUTO) 23.1 % (21-51); MEAN CORPUSCULAR HEMOGLOBIN 38.8 PG (27.0-31.0); MONOCYTES % (AUTO) 16.6 % (2-12); NEUTROPHILS % (AUTO) 57.5 % (42-75); PLATELET COUNT 229 X10'3 (140-440); RED BLOOD COUNT 2.47 X10'6 (4.70-6.10); RED CELL DISTRIBUTION WIDTH 16.3 % (11.5-14.5)
[2019-06-03 08:37] LABS: BILIRUBIN,TOTAL 0.3 MG/DL (0.1-1.0); BUN/CREATININE RATIO 18.4 (5.4-32.0); CREATININE 0.38 MG/DL (0.60-1.10); eGFR > 90 ML/MIN
[2019-06-03] MEDS: K, MAG and/or Phos replacement - Verify level? MC SCH (08:40)
[2019-06-03] MEDS: potassium Cl 20 mEq SR tablet PO PRN ×3 (08:48→17:19)
[2019-06-03 09:57] LABS: TOTAL CELLS COUNTED 100
[2019-06-03 09:58] LABS: ANISOCYTOSIS 1+; LARGE PLATELETS FEW; PLATELET ESTIMATE NORMAL; POLYCHROMASIA FEW
[2019-06-03] MEDS ORDERED: magnesium 4gm in 100ml NS 100 ML IV ONE (10:25)
[2019-06-03] MEDS ORDERED: magnesium 2GM in 50ml NS 50 ML IV ONE (10:30)
[2019-06-03] MEDS ORDERED: magnesium 4gm in 100ml NS 100 ML IV PRN (10:30)
[2019-06-03] MEDS ORDERED: magnesium 2GM in 50ml NS 50 ML IV PRN (10:30)
[2019-06-03] MEDS ORDERED: magnesium Cl slow-release 64mg tablet PO PRN (10:30)
[2019-06-03 11:00] VITALS: BP 105/71
[2019-06-03] MEDS: chlordiazePOXIDE 5mg capsule PO PRN ×2 (11:35→19:44)
[2019-06-03 15:00] VITALS: BP 108/74
[2019-06-03 18:00] VITALS: BP 121/75
--- NOTE | 2019-06-03 18:22 | NUR ---
Patient in room PCU 3028A. I have received report from NIMISHA Arcos and had the opportunity to ask questions and assume patient care. Pt denies CP, SOB, n/v, trembling, shakes, and rated pain 0/10. Pt finished potassium protocol and I will draw blood from his PICC line at 20:00 to send to lab. Will continue to monitor
--- NOTE | 2019-06-03 18:24 | NUR ---
Problems reprioritized. Patient report given, questions answered & plan of care reviewed with NIMISHA Granda.
[2019-06-03 22:00] VITALS: BP 148/86
[2019-06-04] VITALS (7 sets, daily range): BP systolic 103–162; BP diastolic 66–89
[2019-06-04] MEDS: normal saline 1000ml 1,000 ML IV SCH ×2 (02:01→12:17)
[2019-06-04 04:50] LABS: BASOPHILS # (AUTO) 0.1 X10'3 (0-0.2); BASOPHILS % (AUTO) 1.8 % (0-1); EOSINOPHILS # (AUTO) 0.1 X10'3 (0-0.9); EOSINOPHILS % (AUTO) 0.9 % (0-6); HEMATOCRIT 27.8 % (42.0-52.0); HEMOGLOBIN 9.5 g/dl (14.0-17.9); LYMPHOCYTES # (AUTO) 1.3 X10'3 (1.1-4.8); LYMPHOCYTES % (AUTO) 18.4 % (21-51); MEAN CORPUSCULAR HEMOGLOBIN 38.3 PG (27.0-31.0); MEAN CORPUSCULAR HGB CONC 34.3 g/dL (33.0-36.5); MEAN CORPUSCULAR VOLUME 111.8 FL (78-98); MEAN PLATELET VOLUME 8.8 FL (7.4-10.4); MONOCYTES % (AUTO) 14.1 % (2-12); NEUTROPHILS # (AUTO) 4.7 X10'3 (1.8-7.7); NEUTROPHILS % (AUTO) 64.8 % (42-75); PLATELET COUNT 247 X10'3 (140-440); RED BLOOD COUNT 2.49 X10'6 (4.70-6.10); RED CELL DISTRIBUTION WIDTH 16.2 % (11.5-14.5); WHITE BLOOD COUNT 7.3 X10'3 (4.5-11.0)
[2019-06-04 05:06] LABS: ALANINE AMINOTRANSFERASE 35 U/L (12-78); ALBUMIN 2.3 G/DL (3.4-5.0); ALBUMIN/GLOBULIN RATIO 0.8 (1.1-1.5); ALKALINE PHOSPHATASE 81 IU/L (46-116); AMYLASE 101 U/L (25-115); ANION GAP 7 (8-16); ASPARTATE AMINO TRANSFERASE 28 U/L (10-37); BILIRUBIN,TOTAL 0.3 MG/DL (0.1-1.0); BLOOD UREA NITROGEN 10 MG/DL (7-18); BUN/CREATININE RATIO 28.6 (5.4-32.0); CALCIUM 7.1 MG/DL (8.5-10.1); CHLORIDE 108 MMOL/L (99-107); CREATININE 0.35 MG/DL (0.60-1.10); GLUCOSE 82 MG/DL (70-104); LIPASE 231 U/L (73-393); MAGNESIUM 1.7 MG/DL (1.5-2.4); PHOSPHORUS 3.4 MG/DL (2.3-4.5); POTASSIUM 3.8 MMOL/L (3.5-5.1); SODIUM 140 MMOL/L (135-145); TOTAL CARBON DIOXIDE 25.2 MMOL/L (24-32); TOTAL PROTEIN 5.1 G/DL (6.4-8.2); eGFR > 90 ML/MIN
--- NOTE | 2019-06-04 06:34 | NUR ---
Problems reprioritized. Patient report given, questions answered & plan of care reviewed with NIMISHA Arcos. Patient stable at shift change
[2019-06-04] MEDS: K, MAG and/or Phos replacement - Verify level? MC SCH (07:03)
[2019-06-04] MEDS: lactose-reduced food (Ensure Enlive) - 237ml bottle PO SCH ×3 (07:03→17:48)
[2019-06-04] MEDS: heparin, porcine 5000 units/ml vial SQ SCH ×2 (07:03→20:00)
[2019-06-04] MEDS: multivitamins, therapeutics tablet PO SCH (09:36)
[2019-06-04] MEDS: thiamine 100mg tablet PO SCH (09:37)
[2019-06-04] MEDS: nicotine 14mg patch - 24hr TD SCH (09:37)
[2019-06-04] MEDS: folic acid 1mg tablet PO SCH (09:37)
[2019-06-04] MEDS: chlordiazePOXIDE 5mg capsule PO PRN ×2 (09:37→15:37)
--- NOTE | 2019-06-04 19:05 | NUR ---
Problems reprioritized. Patient report given, questions answered & plan of care reviewed with NIMISHA Rascon.
[2019-06-05 03:00] VITALS: BP 141/82
[2019-06-05] MEDS: normal saline 1000ml 1,000 ML IV SCH (03:50)
--- NOTE | 2019-06-05 06:25 | NUR ---
Patient in room PCU 3028A. I have received report from Abiodun BANSAL and had the opportunity to ask questions and assume patient care.
[2019-06-05 06:30] VITALS: BP 130/82
[2019-06-05] MEDS: thiamine 100mg tablet PO SCH (07:20)
[2019-06-05] MEDS: chlordiazePOXIDE 5mg capsule PO PRN (07:20)
[2019-06-05] MEDS: multivitamins, therapeutics tablet PO SCH (07:20)
[2019-06-05] MEDS: folic acid 1mg tablet PO SCH (07:20)
[2019-06-05] MEDS: nicotine 14mg patch - 24hr TD SCH ×2 (07:22→07:26)
[2019-06-05] MEDS: heparin, porcine 5000 units/ml vial SQ SCH (07:22)
[2019-06-05] MEDS: lactose-reduced food (Ensure Enlive) - 237ml bottle PO SCH (07:22)
[2019-06-05] MEDS: K, MAG and/or Phos replacement - Verify level? MC SCH (07:27)
[2019-06-05] MEDS ORDERED: CHLO5CAP3 PO (10:52)
[2019-06-05] MEDS ORDERED: NICO-631 TD (10:52)
[2019-06-05 11:00] VITALS: BP 132/91
--- NOTE | 2019-06-05 12:05 | NUR ---
Per MD, pt stable for discharge. Discharge packet provided and all questions answered. Pt recommended to follow up with PCP and [facility] within 1 week. New prescriptions called into pt's pharmacy of choice: [facility] in [place]. PICC line removed with external length the same, 38, as insertion. Pt tolerated well. Tele monitor removed. All belongings sent with patient, and patient escorted via wheelchair down to [facility], and driven home in private vehicle by his father.
== END 2019-06-05 12:06 | disposition home or self-care (01) | DRG 426 ==
LOC: ER 08:46 → CICU 2S 14:05 → PCU 3S 05-31 17:58
DX: E87.1 Hypo-osmolality and hyponatremia (principal); E87.4 Mixed disorder of acid-base balance; E46 Unspecified protein-calorie malnutrition; E87.6 Hypokalemia; F17.200 Nicotine dependence, unspecified, uncomplicated; F12.90 Cannabis use, unspecified, uncomplicated; E83.42 Hypomagnesemia; F10.239 Alcohol dependence with withdrawal, unspecified; Z68.1 Body mass index [BMI] 19.9 or less, adult; Z79.899 Other long term (current) drug therapy
CPT/HCPCS: 36415; 36569; 36600; 71045; 76937; 80053; 80069; 80305; 80320; 81001; 82150; 82436; 82570; 82607; 82746; 82803; 82948; 83605; 83690; 83735; 83880; 83930; 83935; 84100; 84132; 84133; 84145; 84484; 85018; 85025; 85610; 87040; 87045; 87046; 87081; 87088; 87328; 87329; 87336; 93005; 96361; 96365; 96366; 97116; 97161; 99291; G0378; J1644; J1815; J3411; J3475; J3480; J3490; J7030; J7040; J7060